=== PATIENT | female | born 1975 | race Caucasian/White ===

== ENCOUNTER 2017-05-12 10:51 | Emergency (ER) | payer BC ==
[~2017-05-12] VITALS: Ht 165.1 cm; Wt 66.9 kg
[~2017-05-12 10:51] MED LIST: MOTRIN800 MG PO; Motrin PO; PERCOCET 5/31 TABLET PO; Percocet 5/325,Endoc PO
[2017-05-12 11:34] LABS: HEMATOCRIT 46.1 % (36.0-46.0); MCH 27.5 PG (29.0-34.0); MCHC 33.2 G/DL (30.0-36.0); MCV 82.8 FL (83-99); MEAN PLAT.VOLUME 10.1 uM^3 (9.5-12.4); PLATELET COUNT 168 K/uL (156-360); RBC DIS.WIDTH-CV 12.7 % (11.8-14.6); RBC DIS.WIDTH-SD 38.2 % (39-53); RED BLOOD COUNT 5.57 M/uL (3.80-5.20); WHITE BLOOD COUNT 6.4 K/uL (4.1-10.2)
[2017-05-12 11:40] LABS: CHLORIDE 106 mEq/L (99-109); POTASSIUM 4.1 mEq/L (3.7-5.4); SODIUM 138 mEq/L (136-147)
[2017-05-12 11:42] LABS: GLUCOSE 96 mg/dL (70-99)
[2017-05-12 11:44] LABS: ANION GAP 10 MEQ/L (2-14)
[2017-05-12 11:46] LABS: GFR ESTIMATE (CALCULATED) > 59 mL/min/
[2017-05-12 11:47] LABS: UREA NITROGEN (BUN) 13 mg/dL (9-23)
[2017-05-12 11:52] LABS: TROP-I INTERPRETATION NEGATIVE; TROPONIN-I < 0.01 ng/mL (0.0-0.30)
[2017-05-12 14:02] LABS: TROP-I INTERPRETATION NEGATIVE; TROPONIN-I < 0.01 ng/mL (0.0-0.30)
[2017-05-12] MEDS ORDERED: ANTIVERT25 MG PO (14:07)
[2017-05-12 14:14] VITALS: BP 132/67
== END 2017-05-12 14:15 | disposition home or self-care (01) ==
LOC: EME 10:51
PROVIDERS: Physician Assistant Medical
DX: R07.89 Other chest pain (principal); R42 Dizziness and giddiness; Q85.00 Neurofibromatosis, unspecified; Z87.891 Personal history of nicotine dependence
CPT/HCPCS: 71020; 80048; 84484; 85027; 93005; 99281; 99284; J7030